=== PATIENT | female | born 1995 | race African-American/Black ===

== ENCOUNTER 2020-01-30 00:24 | Emergency (ER) | payer OTHER ==
[~2020-01-30] VITALS: Ht 162.6 cm; Wt 52.0 kg
[2020-01-30] MEDS ORDERED: IBUPROFEN 600MG TABLET PO ONE (01:45)
[2020-01-30 03:05] VITALS: BP 121/71
== END 2020-01-30 03:05 | disposition home or self-care (01) ==
LOC: ER 00:35
DX: M25.571 Pain in right ankle and joints of right foot (principal); J45.909 Unspecified asthma, uncomplicated; Z88.0 Allergy status to penicillin; Z88.8 Allergy status to other drugs, medicaments and biological substances
CPT/HCPCS: 73610; 93971; 99284

== ENCOUNTER 2020-03-07 03:27 | Emergency (ER) | payer MEDICAID, OTHER ==
[~2020-03-07] VITALS: Ht 162.6 cm; Wt 55.3 kg
[2020-03-07] MEDS ORDERED: IPRATROPIUM BROMIDE (0.02%) 0.5MG/2.5ML NEB HHN STA (03:49)
[2020-03-07] MEDS ORDERED: ALBUTEROL (0.083%) 2.5MG/3ML NEB HHN STA (03:49)
[2020-03-07 04:14] LABS: BASOPHILS % 1.2 % (0.0-2.0); EOSINOPHILS % 3.3 % (0.0-5.0); HEMATOCRIT. 42.9 % (36.0-48.0); HEMOGLOBIN. 14.7 g/dL (12.0-16.0); LYMPHOCYTES % 48.9 % (20.0-50.0); MEAN CORPUSCULAR HEMOGLOBIN 32.6 pg (28.0-32.0); MEAN CORPUSCULAR VOLUME 95.3 fL (81.0-99.0); MEAN PLATELET VOLUME 9.2 fl (7.4-10.4); MONOCYTES % 8.1 % (2.0-8.0); NEUTROPHILS % 38.5 % (40.0-76.0); PLATELET 199 x1000/uL (130-400); RED BLOOD CELL COUNT 4.51 mill/uL (4.2-5.4); RED CELL DISTRIBUTION WIDTH 13.2 % (11.6-14.6)
[2020-03-07 04:21] LABS: CHLORIDE 107 mEq/L (98-107)
[2020-03-07] MEDS ORDERED: PREDNISONE 20MG TABLET PO ONE (04:45)
[2020-03-07 06:41] VITALS: BP 125/72
== END 2020-03-07 06:42 | disposition home or self-care (01) ==
LOC: ER 03:27
DX: J45.901 Unspecified asthma with (acute) exacerbation (principal); Z88.0 Allergy status to penicillin; Z88.8 Allergy status to other drugs, medicaments and biological substances
CPT/HCPCS: 36415; 71045; 80053; 84484; 85025; 93005; 94644; 99285; J7512; Z7610

== ENCOUNTER 2020-10-14 23:45 | Emergency (ER) | payer MEDICAID ==
[~2020-10-14] VITALS: Ht 162.6 cm; Wt 53.0 kg
[2020-10-15] MEDS ORDERED: CYCLOBENZAPRINE 10MG TABLET PO PRN (00:15)
[2020-10-15] MEDS ORDERED: KETOROLAC 60MG/2ML VIAL IM ONE (00:15)
[2020-10-15] MEDS ORDERED: CYCL5TAB PO (01:40)
[2020-10-15] MEDS ORDERED: IBUP-2028 MT (01:40)
[2020-10-15 01:59] VITALS: BP 133/70
== END 2020-10-15 01:59 | disposition home or self-care (01) ==
LOC: ER 23:45
DX: M54.5 Low back pain (principal); M62.830 Muscle spasm of back; J45.909 Unspecified asthma, uncomplicated; Z88.0 Allergy status to penicillin; Z88.8 Allergy status to other drugs, medicaments and biological substances
CPT/HCPCS: 81025; 96372; 99283; J1885

== ENCOUNTER 2021-02-08 08:38 | Emergency (ER) | payer MEDICAID, OTHER ==
[~2021-02-08] VITALS: Ht 162.6 cm; Wt 54.0 kg
[~2021-02-08 08:38] MED LIST: CYCL5TAB PO; IBUP-2028 MT
[2021-02-08] MEDS ORDERED: KETOROLAC 60MG/2ML VIAL IM ONE (10:30)
[2021-02-08 10:37] VITALS: BP 108/74
[2021-02-08] MEDS ORDERED: ONDA4TAB5 MT (10:51)
[2021-02-08] MEDS ORDERED: IBUP-2028 MT (10:51)
[2021-02-08] MEDS ORDERED: HYDR-4346 MT (10:51)
== END 2021-02-08 11:41 | disposition home or self-care (01) ==
LOC: ER 08:38
DX: K08.89 Other specified disorders of teeth and supporting structures (principal); R68.84 Jaw pain; J45.909 Unspecified asthma, uncomplicated; Z79.899 Other long term (current) drug therapy; Z88.0 Allergy status to penicillin
CPT/HCPCS: 81025; 96372; 99283; J1885

== ENCOUNTER 2021-11-12 09:26 | Emergency (ER) | payer OTHER ==
[~2021-11-12] VITALS: Ht 162.6 cm; Wt 50.0 kg
[~2021-11-12 09:26] MED LIST changes: +HYDR-4346 MT; +ONDA4TAB5 MT
[2021-11-12 11:17] VITALS: BP 132/86
[2021-11-12 11:20] LABS: BASOPHILS % 1.2 % (0.0-2.0); EOSINOPHILS % 3.3 % (0.0-5.0); HEMATOCRIT. 39.4 % (36.0-48.0); HEMOGLOBIN. 13.4 g/dL (12.0-16.0); LYMPHOCYTES % 42.4 % (20.0-50.0); MEAN CORPUSCULAR HEMOGLOBIN 32.6 pg (28.0-32.0); MEAN CORPUSCULAR VOLUME 95.6 fL (81.0-99.0); MEAN PLATELET VOLUME 8.9 fl (7.4-10.4); MONOCYTES % 9.2 % (2.0-8.0); NEUTROPHILS % 43.9 % (40.0-76.0); PLATELET 185 x1000/uL (130-400); RED BLOOD CELL COUNT 4.12 mill/uL (4.2-5.4); RED CELL DISTRIBUTION WIDTH 13.1 % (11.6-14.6)
[2021-11-12 11:26] LABS: CHLORIDE 109 mEq/L (98-107)
[2021-11-12 11:30] LABS: ETHANOL BLOOD < 10 mg/dL
[2021-11-12 11:31] LABS: HCG SCREEN NEGATIVE
[2021-11-12] MEDS ORDERED: ACETAMINOPHEN 325MG TABLET PO ONE (12:30)
[2021-11-12] MEDS ORDERED: KETOROLAC 30MG/ML VIAL IM ONE (12:30)
[2021-11-12 12:45] LABS: CLARITY URINE CLEAR (CLEAR); COLOR URINE YELLOW (YELLOW); KETONES URINE NEGATIVE (NEGATIVE); LEUKOCYTE ESTERASE URINE NEGATIVE (NEGATIVE); NITRITE URINE NEGATIVE (NEGATIVE); OCCULT BLOOD URINE NEGATIVE (NEGATIVE); PROTEIN URINE NEGATIVE (NEGATIVE); SPECIFIC GRAVITY URINE 1.016 (1.005-1.030); UROBILINOGEN URINE 0.2 E.U./dL (0.2-1.0)
[2021-11-12 12:50] LABS: *AMPHETAMINES SCREEN URINE NEGATIVE (NEGATIVE); *BARBITURATES SCREEN URINE NEGATIVE (NEGATIVE); *BENZODIAZEPINES SCREEN URINE NEGATIVE (NEGATIVE); *COCAINE SCREEN URINE NEGATIVE (NEGATIVE); PHENCYCLIDINE URINE SCREEN NEGATIVE (NEGATIVE)
[2021-11-12 12:51] LABS: METHADONE URINE SCREEN NEGATIVE (NEGATIVE); OPIATES URINE SCREEN NEGATIVE (NEGATIVE)
[2021-11-12 12:53] LABS: CANNABINOID URINE SCREEN PRESUMTIVE POSITIVE (NEGATIVE)
== END 2021-11-12 13:25 | disposition home or self-care (01) ==
LOC: ER 09:26
DX: R00.2 Palpitations (principal); R07.9 Chest pain, unspecified; J45.909 Unspecified asthma, uncomplicated; Z88.0 Allergy status to penicillin; Z88.8 Allergy status to other drugs, medicaments and biological substances
CPT/HCPCS: 36415; 71045; 80053; 80305; 80320; 81003; 84484; 84703; 85025; 93005; 96372; 99285; J1885; G0480

== ENCOUNTER 2021-12-23 18:40 | Emergency (ER) | payer OTHER ==
[~2021-12-23] VITALS: Ht 162.6 cm; Wt 53.0 kg
[2021-12-23 18:42] VITALS: BP 130/85
[2021-12-23] MEDS ORDERED: ACET10DR15 LEFT EAR (18:52)
[2021-12-23] MEDS ORDERED: ACET-2708 MT (18:52)
[2021-12-23] MEDS ORDERED: ACETAMINOPHEN 325MG TABLET PO ONE (19:00)
== END 2021-12-23 21:10 | disposition home or self-care (01) ==
LOC: ER 18:40
DX: H92.01 Otalgia, right ear (principal); I10 Essential (primary) hypertension; J45.909 Unspecified asthma, uncomplicated; Z79.899 Other long term (current) drug therapy
CPT/HCPCS: 99282